=== PATIENT | male | born 1950 | race Caucasian/White ===

== ENCOUNTER 2017-07-11 15:59 | Emergency (ER) | payer MEDICARE, BC ==
[~2017-07-11] VITALS: Ht 175.3 cm; Wt 102.1 kg
[~2017-07-11 15:59] MED LIST: AMLO1CAP9 PO; ASPI81TA31 PO; FURO20TA4 PO; GLIM4TAB3 PO; METO2.5T2 PO; POTA10CA43 PO; RANO500T3 PO; RIVA10TA PO; ROSU20TA PO; SITA1TAB6 PO
[2017-07-11] MEDS ORDERED: PANTOPRAZOLE SODIUM 40 MG VIAL IV ONE (16:30)
[2017-07-11] MEDS ORDERED: IV NORMAL SALINE 1000 ML BAG IV ONE ×2 (16:30→18:00)
[2017-07-11] MEDS ORDERED: ONDANSETRON 4 MG/2 ML VIAL IV ONE (16:30)
[2017-07-11] MEDS ORDERED: PANTOPRAZOLE SODIUM 40 MG VIAL ONE (16:58)
[2017-07-11] MEDS ORDERED: ONDANSETRON 4 MG/2 ML VIAL ONE (16:58)
[2017-07-11 17:03] LABS: BASOPHILS # (AUTO) 0.1 K/uL (0.0-8.0); EOSINOPHILS % (AUTO) 0.3 % (0.0-7.0); MONOCYTES # (AUTO) 0.4 K/uL (2.0-10.0); NEUTROPHILS # (AUTO) 7.3 K/uL (1.8-8.9); RED BLOOD CELL COUNT(AUTO) 4.54 MIL/uL (4.06-5.63)
--- NOTE | 2017-07-11 17:09 | NUR ---
PATIENT TOOK OFF THE CARDIAC LEADS. STATES "I DO NOT NEED THEM". I REAPPLIED IT BUT THEN HE TOOK IT OFF AGAIN. DR DELATORRE AWARE.
[2017-07-11 17:11] LABS: POTASSIUM 3.6 mmol/L (3.5-5.1)
--- NOTE | 2017-07-11 17:11 | NUR ---
PATIENT WAS SEEN BY . MEDSICATIONS GIVEN ORDERED. PATIENT STATES NAUSEA HAS NOT DIMINISHED. DR DELATORRE NOTIFIED.
[2017-07-11] MEDS ORDERED: diphenhydrAMINE 50 MG/1 ML VIAL IV ONE (17:15)
[2017-07-11] MEDS ORDERED: METOCLOPRAMIDE HCL 10 MG/2 ML VIAL IV ONE (17:15)
[2017-07-11 17:16] LABS: BASOPHILS % (AUTO) 0.9 % (0.0-2.0); HEMATOCRIT 34.6 % (36.7-47.1); HEMOGLOBIN 11.6 g/dL (12.5-16.3); LYMPHOCYTES # (AUTO) 0.9 K/uL (20.0-40.0); LYMPHOCYTES % (AUTO) 10.8 % (20.5-51.5); MEAN CORPUSCULAR HEMOGLOBIN 25.5 uug (23.8-33.4); MEAN CORPUSCULAR HGB CONC 33 g/dL (32.5-36.3); MEAN CORPUSCULAR VOLUME 76.3 fL (73.0-96.2); MONOCYTES % (AUTO) 4.3 % (0.0-11.0); NEUTROPHILS % (AUTO) 83.7 % (38.5-71.5); PLATELET COUNT (AUTO) 133 K/uL (152-348); WHITE BLOOD COUNT (AUTO) 8.7 K/uL (3.6-10.2)
[2017-07-11 17:18] LABS: BILIRUBIN,DIRECT 0.2 mg/dL (0.0-0.2); BILIRUBIN,TOTAL 0.8 mg/dL (0.2-1.0); TOTAL PROTEIN, SERUM 7.9 g/dL (6.4-8.2)
[2017-07-11] MEDS ORDERED: diphenhydrAMINE 50 MG/1 ML VIAL ONE (17:35)
[2017-07-11] MEDS ORDERED: METOCLOPRAMIDE HCL 10 MG/2 ML VIAL ONE (17:35)
--- NOTE | 2017-07-11 17:44 | NUR ---
REGLAN AND BENADRYL GIVEN ORDERED. PATIENT STATES HE FEELS MUCH BETTER.
--- NOTE | 2017-07-11 18:10 | NUR ---
URINE SENT TO LAB
--- NOTE | 2017-07-11 18:52 | NUR ---
DR MONIQUE AT BEDSIDE SPEAKING TO PATIENT.
--- NOTE | 2017-07-11 18:52 | NUR ---
NO VOMITING SINCE HE RECEIVED REGLAN.
--- NOTE | 2017-07-11 18:55 | NUR ---
PATIENT STATES HE ABSOLUTELY DOES NOT WANT TO STAY IN THE HOSPITAL AND WANTS TO GO HOME NOW EVEN THOUGH DR MONIQUE EDUCATED HIM ABOUT A POTENTIAL ARRYTHMIA THAT COULD BE LETHAL.
--- NOTE | 2017-07-11 19:18 | NUR ---
Patient does not wish to proceed with medical care recommended by Dr. Castillo. Patient given information related to possible complications, up to and including , which could occur as a result of leaving the hospital at this time. Patient verbalizes understanding of risks involved due to leaving against medical advice. Patient has signed AMA form.
== END 2017-07-11 19:22 | disposition left against medical advice (07) ==
LOC: ER 15:59
DX: I44.1 Atrioventricular block, second degree (principal); R11.2 Nausea with vomiting, unspecified; N28.9 Disorder of kidney and ureter, unspecified; R19.7 Diarrhea, unspecified; E78.5 Hyperlipidemia, unspecified; I10 Essential (primary) hypertension; I25.10 Atherosclerotic heart disease of native coronary artery without angina pectoris; Z79.82 Long term (current) use of aspirin; Z95.5 Presence of coronary angioplasty implant and graft
CPT/HCPCS: 36415; 70030-TC; 71010; 83605; 83690; 85025; 87040; 93005; A4663; C9113; J1200; J2405; J2765; J7030

== ENCOUNTER 2019-03-09 13:39 | Emergency (ER) | payer BC, MEDICARE ==
[~2019-03-09] VITALS: Ht 175.3 cm; Wt 104.3 kg
[~2019-03-09 13:39] MED LIST changes: +AMLO-102 PO; -AMLO1CAP9 PO; -ROSU20TA PO; +ROSU20TA2 PO
[2019-03-09] MEDS ORDERED: LIDOCAINE 1%-EPI 1:100,000 20 ML VIAL ONE (13:59)
--- NOTE | 2019-03-09 14:17 | NUR ---
PT IS IN ROOM #2A. DR FARIA EVALUATED THE PT.
[2019-03-09] MEDS ORDERED: LIDOCAINE 1%-EPI 1:100,000 20 ML VIAL TP ONE (16:15)
[2019-03-09] MEDS ORDERED: LIDOCAINE HCL 1% 20 ML VIAL IJ ONE (16:15)
[2019-03-09 16:32] VITALS: BP 142/74
--- NOTE | 2019-03-09 16:33 | NUR ---
PT WAS D/C'd TO HOME. D/C INSTRUCTIONS GIVEN TO THE PT. DRSSING IS INTACT. NO BLEEDING.
== END 2019-03-09 16:37 | disposition home or self-care (01) ==
LOC: ER 13:39
DX: S61.215A Laceration without foreign body of left ring finger without damage to nail, initial encounter (principal); I10 Essential (primary) hypertension; E78.5 Hyperlipidemia, unspecified; I25.10 Atherosclerotic heart disease of native coronary artery without angina pectoris; E11.9 Type 2 diabetes mellitus without complications; Z79.82 Long term (current) use of aspirin; Z79.899 Other long term (current) drug therapy; W27.8XXA Contact with other nonpowered hand tool, initial encounter; Y92.89 Other specified places as the place of occurrence of the external cause; Y93.89 Activity, other specified; Y99.8 Other external cause status
CPT/HCPCS: 12001; 99283; J3490; A4663

== ENCOUNTER 2019-03-25 11:59 | Emergency (ER) | payer MEDICARE ==
[~2019-03-25] VITALS: Ht 175.3 cm; Wt 104.3 kg
--- NOTE | 2019-03-25 12:30 | NUR ---
ERMD stated "OK to remove sutures." However, the tip of the patient's finger is covered with xerofoam which covers the sutures. Removing the small amount of xerofoam near the sutures caused a small amount of bleeding from the previous wound. ERMD notified, patient instructed to return in 3 days to allow xerofoam to breakdown further.
--- NOTE | 2019-03-25 12:37 | NUR ---
Patient discharged to home in stable conditon. Written and verbal after care instructions given. Patient verbalizes understanding of instructions.
== END 2019-03-25 12:40 | disposition home or self-care (01) ==
LOC: ER 11:59
DX: S61.210D Laceration without foreign body of right index finger without damage to nail, subsequent encounter (principal); I10 Essential (primary) hypertension; E78.5 Hyperlipidemia, unspecified; I25.10 Atherosclerotic heart disease of native coronary artery without angina pectoris; E11.9 Type 2 diabetes mellitus without complications; Z79.82 Long term (current) use of aspirin; Z79.899 Other long term (current) drug therapy; X58.XXXD Exposure to other specified factors, subsequent encounter
CPT/HCPCS: A4217; A4663

== ENCOUNTER 2019-04-08 09:55 | Emergency (ER) | payer MEDICARE ==
[~2019-04-08] VITALS: Ht 175.3 cm; Wt 99.8 kg
--- NOTE | 2019-04-08 10:06 | NUR ---
VANGIE WILCOX AT BEDSIDE FOR MSE.
--- NOTE | 2019-04-08 10:08 | NUR ---
2 SUTURES REMOVED FROM 4TH DIGIT OF R HAND BY ER . NO BLEEDING NOTED.
--- NOTE | 2019-04-08 10:12 | NUR ---
Patient discharged to home in stable conditon. Written and verbal after care instructions given. Patient verbalizes understanding of instructions. ALL BELONGINGS W/ PT. PT SELF-AMBULATED W/O DIFFICULTY.
[2019-04-08 10:13] VITALS: BP 122/72
== END 2019-04-08 10:13 | disposition home or self-care (01) ==
LOC: ER 09:55
DX: S61.214D Laceration without foreign body of right ring finger without damage to nail, subsequent encounter (principal); I10 Essential (primary) hypertension; E78.5 Hyperlipidemia, unspecified; I25.10 Atherosclerotic heart disease of native coronary artery without angina pectoris; E11.9 Type 2 diabetes mellitus without complications; Z79.82 Long term (current) use of aspirin; Z79.899 Other long term (current) drug therapy; X58.XXXD Exposure to other specified factors, subsequent encounter
CPT/HCPCS: A4663